=== PATIENT | female | born 1935 | race Caucasian/White ===

== ENCOUNTER 2016-10-19 16:48 | Emergency (ER) | payer MEDICARE ==
--- NOTE | 2016-10-27 21:25 | ER ---
ADMIT: 10/19/2016 RM/LOC: ER [facility] MR#: [id number] [address] [id number] [address] [place] [address] Emergency Room Report SEX: F AGE: 81 : 1935 DATE: 10/19/2016 See T-sheet for complete H and P. ADDENDUM: An 81-year-old female, comes in with a presyncopal episode. She was out with her , who is doing fishing when she felt like she was lightheaded. She asked for his help and he lowered her to the ground. They decided to call EMS and bring her in for evaluation. She denies any chest pain or shortness of breath. Denies any headache numbness, tingling, or weakness in extremities. We got a head CT, which was unremarkable. CBC showed her hemoglobin is 9, which is stable for her. Chemistries were fine. She does take Coumadin for atrial fibrillation, and her INR was therapeutic at 2.0, and urinalysis was normal. EKG showed first-degree AV block. Otherwise sinus rhythm with a rate of 64. We checked orthostatics and they were fine, and the patient actually felt like she was at her baseline and felt comfortable going home so she was discharged home to follow up with her primary service on Friday. DIAGNOSIS: Presyncopal episode. Discharged home in a stable and improved condition. Rashel Cedeno MD/ faustino JOB #: [id number] CC: Rashel Cedeno MD, Attending Physician Ebony Hope MD, Family Physician
== END 2016-10-19 20:00 | disposition home or self-care (01) ==
LOC: ER 16:48
DX: R55 Syncope and collapse (principal); Z88.2 Allergy status to sulfonamides

== ENCOUNTER → 2016-10-23 | Outpatient (CLI) | payer MEDICARE | END | disposition home or self-care (01) | LOC: CARD 07:44 | DX: R55 Syncope and collapse (principal); I49.1 Atrial premature depolarization; I49.3 Ventricular premature depolarization; I47.1 Supraventricular tachycardia ==